=== PATIENT | female | born 1990 | race Caucasian/White ===

== ENCOUNTER 2018-11-05 15:52 | Emergency (ER) | payer BC ==
[~2018-11-05] VITALS: Ht 170.2 cm; Wt 72.6 kg
[2018-11-05 16:39] VITALS: BP 120/80
== END 2018-11-05 16:39 | disposition home or self-care (01) ==
LOC: M.ERS 15:52
DX: S01.01XA Laceration without foreign body of scalp, initial encounter (principal); W18.39XA Other fall on same level, initial encounter; Y92.89 Other specified places as the place of occurrence of the external cause; Y93.89 Activity, other specified; Y99.8 Other external cause status